=== PATIENT | female | born 1990 | race African-American/Black ===

== ENCOUNTER 2023-10-27 00:56 | Inpatient (IN) | payer MEDICAID ==
[2023-10-27] VITALS (10 sets, daily range): BP systolic 106–128; BP diastolic 63–77; PULSE 54–84; RESP 15–22; TEMP 97.6–98.7; O2SAT 94–100
[~2023-10-27] VITALS: Ht 154.9 cm; Wt 104.8 kg
[~2023-10-27 00:56] MED LIST: NITR-87 PO
[2023-10-27 01:48] LABS: Urine Bacteria None Seen /hpf (None Seen)
[2023-10-27 01:58] LABS: Urine Blood 3+ /uL (Negative); Urine Clarity Clear (Clear); Urine Color Colorless (Yellow); Urine Mucus FEW (None Seen); Urine Protein, UAD TRACE (Negative); Urine Specific Gravity 1.016 (1.001-1.035); Urine Urobilinogen Normal (Negative); Urine WBC 21 /hpf (0 - 5); Urine pH 5.5 (5.0-9.0)
[2023-10-27 02:20] LABS: Basophils # (auto) 0.1 10 ^3/uL (0-0.2); Basophils % (auto) 1.1 % (0.0-2.0); Eosinophils # (auto) 0 10 ^3/uL (0-0.8); Eosinophils % (auto) 0.7 % (0.0-7.0); Hematocrit 33.3 % (36.0-46.0); Hemoglobin 10.8 g/dL (12.2-16.2); Lymphocytes # (auto) 1.7 10 ^3/uL (0.4-5.4); Lymphocytes % (auto) 26.9 % (10.0-50.0); Mean Corpuscular Hemoglobin 25.1 pg (28.0-32.0); Mean Corpuscular Hgb Conc. 32.4 g/dL (32.0-36.0); Mean Corpuscular Volume 77.4 fL (80.0-100.0); Monocytes # (auto) 0.6 10 ^3/uL (0-1.3); Neutrophils % (auto) 62.3 % (37.0-80.0); White Blood Cell 6.4 10^3/uL (4.4-10.8)
[2023-10-27 02:37] LABS: INR 1.04 (0.9-1.15); Partial Thromboplastin Time 25.9 SEC (24.5-34.5)
[2023-10-27 02:38] LABS: Albumin 4.5 g/dL (3.2-4.8); Alkaline Phosphatase 58 U/L (46-116); Anion Gap 7 (5-15); Aspartate Aminotransferase 11 U/L (13-40); BUN/Creatinine Ratio 5.6 (10.0-20.0); Bilirubin, Total 0.5 mg/dL (0.2-1.0); Blood Urea Nitrogen 6 mg/dL (9-23); Calcium 9.6 mg/dL (8.7-10.4); Carbon Dioxide 24 mmol/L (20-30); Chloride 110 mmol/L (98-107); Glucose 87 mg/dL (74-106); Lipase 34 U/L (12-53); Potassium 3.5 mmol/L (3.5-5.1); Sodium 141 mmol/L (136-145); Total Protein 7.7 g/dL (5.7-8.2)
[2023-10-27 02:57] LABS: Alanine Aminotransferase < 9 U/L (7-40)
[2023-10-27] MEDS: KETOROLAC TROMETH 60MG/2ML VIAL IM ONE (04:00)
[2023-10-27] MEDS: ONDANSETRON ODT 4 MG TAB PO ONE (04:57)
[2023-10-27] MEDS: cloNIDine HCL 0.1 MG TAB PO ONE (04:58)
[2023-10-27] MEDS: metroNIDAZOLE 500MG/100ML 100 ML IV ONE (05:29)
[2023-10-27] MEDS: ONDANSETRON HCL 4 MG/2 ML VIAL IV ONE (05:32)
[2023-10-27] MEDS: MORPHINE SULFATE 4 MG/ML SYR/VIAL IV ONE (05:33)
[2023-10-27] MEDS ORDERED: NITROGLYCERIN 0.4 MG SL TAB SL PRN (06:30)
[2023-10-27] MEDS ORDERED: hydrALAZINE HCL 20 MG/ML VL IV PRN (06:30)
[2023-10-27] MEDS ORDERED: MORPHINE SULFATE INJ 2 MG/ml SYRG IV PRN (06:30)
[2023-10-27] MEDS: levoFLOXacin 500MG 100 ML IV ONE (07:08)
[2023-10-27] MEDS: SODIUM CHLORIDE 0.9% 1,000 ML IV SCH (07:55)
[2023-10-27] MEDS: MORPHINE SULFATE INJ 2 MG/ml SYRG IV PRN (08:43)
[2023-10-27] MEDS ORDERED: LEVOTAB51 PO (09:30)
[2023-10-27] MEDS ORDERED: HYDR-4798 PO (09:30)
[2023-10-27] MEDS ORDERED: PREG75CA PO (09:30)
[2023-10-27] MEDS ORDERED: LOSA-533 PO (09:30)
[2023-10-27] MEDS: metroNIDAZOLE 500MG/100ML 100 ML IV SCH (14:42)
[2023-10-27] MEDS: ONDANSETRON HCL 4 MG/2 ML VIAL IV PRN (17:37)
[2023-10-28] VITALS (8 sets, daily range): BP systolic 121–154; BP diastolic 67–90; PULSE 54–78; RESP 17–20; TEMP 97.5–98.9; O2SAT 97–100
[2023-10-28 06:09] LABS: Basophils # (auto) 0 10 ^3/uL (0-0.2); Basophils % (auto) 0.6 % (0.0-2.0); Eosinophils # (auto) 0.1 10 ^3/uL (0-0.8); Eosinophils % (auto) 0.8 % (0.0-7.0); Hematocrit 33.2 % (36.0-46.0); Hemoglobin 10.8 g/dL (12.2-16.2); Lymphocytes # (auto) 1.5 10 ^3/uL (0.4-5.4); Lymphocytes % (auto) 21.7 % (10.0-50.0); Mean Corpuscular Hemoglobin 25.4 pg (28.0-32.0); Mean Corpuscular Hgb Conc. 32.6 g/dL (32.0-36.0); Mean Corpuscular Volume 77.8 fL (80.0-100.0); Monocytes # (auto) 0.5 10 ^3/uL (0-1.3); Monocytes % (auto) 7.6 % (0.0-12.0); Neutrophils # (auto) 4.8 10 ^3/uL (1.6-8.6); Neutrophils % (auto) 69.3 % (37.0-80.0); Red Blood Cells 4.27 10^6/uL (4.0-5.20); Red Cell Distribution Width 19.4 % (11.8-14.3); White Blood Cell 6.9 10^3/uL (4.4-10.8)
[2023-10-28 06:16] LABS: Albumin 4.2 g/dL (3.2-4.8); Alkaline Phosphatase 62 U/L (46-116); Anion Gap 9 (5-15); BUN/Creatinine Ratio 5.5 (10.0-20.0); Blood Urea Nitrogen 5 mg/dL (9-23); Calcium 9.5 mg/dL (8.7-10.4); Carbon Dioxide 22 mmol/L (20-30); Chloride 108 mmol/L (98-107); Glucose 65 mg/dL (74-106); Potassium 3.3 mmol/L (3.5-5.1); Sodium 139 mmol/L (136-145)
[2023-10-28 06:17] LABS: Aspartate Aminotransferase 10 U/L (13-40); Bilirubin, Total 0.6 mg/dL (0.2-1.0); Total Protein 6.9 g/dL (5.7-8.2)
[2023-10-28 06:29] LABS: Alanine Aminotransferase < 9 U/L (7-40)
[2023-10-28] MEDS: levoFLOXacin 500MG 100 ML IV SCH (10:07)
[2023-10-28] MEDS ORDERED: HYDROmorphone HCL 2 MG/ML VL/or syr ONE (13:06)
[2023-10-28] MEDS: BUPIVACAINE W/ EPINEPH 0.5% INJ 50ML MDV IJ ONE (13:06)
[2023-10-28] MEDS ORDERED: MIDAZOLAM HCL 2MG/2ML 2ml VIAL (1mg/ml) ONE (13:06)
[2023-10-28] MEDS ORDERED: fentaNYL CITRATE 100 MCG/2 ML VL ONE ×2 (13:06→13:59)
[2023-10-28] MEDS: LIDOCAINE 1% HCL (LOCAL ANESTH.) INJ 20ML MDV ONE (13:06)
[2023-10-28] MEDS ORDERED: DexAMETHasone SOD PHOS 10MG/1ML VIAL INJ ONE (13:07)
[2023-10-28] MEDS ORDERED: ROCURONIUM 10MG/ML 10ML VIAL IV ONE (13:07)
[2023-10-28] MEDS ORDERED: KETOROLAC TROMETH 30 MG/ML 1ML VIAL ONE (13:07)
[2023-10-28] MEDS ORDERED: KETAMINE 50mg/ML 1ml syringe ONE (13:07)
[2023-10-28] MEDS ORDERED: ePHEDrine SULFATE 50 MG/ML AMP ONE (13:07)
[2023-10-28] MEDS ORDERED: LIDOCAINE 1% INJ PF 5ML AMP ONE (13:07)
[2023-10-28] MEDS ORDERED: GLYCOPYRROLATE 0.2 MG/ML 1ML VIAL ONE (13:07)
[2023-10-28] MEDS ORDERED: PROPOFOL 10 MG/ML 20 ML IV ONE (13:07)
[2023-10-28] MEDS ORDERED: SUGAMMADEX 200mg/2ml Vial (100MG/ML) IV ONE (13:57)
[2023-10-28] MEDS: ONDANSETRON HCL 4 MG/2 ML VIAL IV ONE (14:45)
[2023-10-28] MEDS: HYDROmorphone HCL 2 MG/ML VL/or syr IV PRN (14:51)
[2023-10-28] MEDS: FAMOTIDINE (10MG/ML) 2ML VL IV ONE ×2 (15:30→15:36)
[2023-10-29 01:00] VITALS: BP 138/73; PULSE 68; RESP 18; TEMP 98.3; O2SAT 100
[2023-10-29 05:00] VITALS: BP 153/88; PULSE 54; RESP 18; TEMP 98.1; O2SAT 100
[2023-10-29 08:00] VITALS: BP 144/72; PULSE 64; PULSE 66; RESP 18; TEMP 97.9; O2SAT 100
[2023-10-29] MEDS ORDERED: HYDR-4902 PO (09:55)
[2023-10-29] MEDS ORDERED: LEVO500T91 PO (09:55)
[2023-10-29] MEDS ORDERED: METR-344 PO (09:55)
[2023-10-29 11:11] VITALS: BP 132/72; PULSE 64; RESP 18; TEMP 36.7; O2SAT 100
== END 2023-10-29 12:10 | disposition home or self-care (01) | DRG 234 ==
LOC: ER 00:56 → TELE 06:38 → TELE-WESTW 09:14
PROVIDERS: ADMIT Nurse Practitioner; ATTEND Family Medicine
PROC: 0DTJ4ZZ Resection of Appendix, Percutaneous Endoscopic Approach (ICD-10-PCS; principal; 2023-10-28 13:15)
DX: K35.80 Unspecified acute appendicitis (principal); N17.9 Acute kidney failure, unspecified; E66.01 Morbid (severe) obesity due to excess calories; I10 Essential (primary) hypertension; N39.0 Urinary tract infection, site not specified; Z98.84 Bariatric surgery status; Z88.0 Allergy status to penicillin; Z82.49 Family history of ischemic heart disease and other diseases of the circulatory system; Z81.8 Family history of other mental and behavioral disorders; Z68.42 Body mass index [BMI] 45.0-49.9, adult
CPT/HCPCS: 36415; 71045; 74176; 76705; 80053; 81001; 83690; 84702; 85025; 85610; 85730; 86850; 86900; 86901; 87086; 96365; 96375; G0378; J1100; J1885; J1956; J2001; J2250; J2405; J2704; J3490; Q0162